=== PATIENT | female | born 1950 | race African-American/Black ===

== ENCOUNTER 2016-05-10 20:33 | Emergency (ER) ==
[2016-05-10] MEDS ORDERED: DUONEB (A & A) INH ONE (20:53)
[2016-05-10] MEDS ORDERED: TORADOL IM ONE (20:53)
--- NOTE | 2016-05-10 20:58 | PROVIDER DOCUMENTATION ---
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 PT STATES SICKNESS X 2 DAYS PT STATES SHE HAD A LOW GRADE FEVER AT HOME YESTERDAY. PT STATES A PRODUCTIVE COUGH WITH YELLOW PHLEGM. PT STATES BAD HEADACHE X 2 DAYS MORE PROMINENT ON LT SIDE Location of Pain/Injury: reports: back (RT LOWER BACK) Pain Radiation: reports: no radiation Quality of Pain: reports: aching Severity: reports: moderate Onset/Duration: reports: 1 hour ago Timing: reports: still present Context/Activities at Onset: reports: light activity Modifying Factors: improves with: nothing Associated Symptoms: reports: back/neck pain (RT LOWER) Similar Symptoms Previously?: No Recently seen or treated by another doctor?: No <Jostin Mendoza - Last Filed: 05/10/16 22:38> <John Ashton - Last Filed: 05/10/16 23:12> - General Chief Complaint: General Adult Stated Complaint: SOB/FALL @ 1999 Time Seen by Provider: 05/10/16 20:47 Allergies/Adverse Reactions: Patient Allergies Allergy/AdvReac Type Severity Reaction Status Date / Time Penicillins Allergy Severe SEIZURE Verified 05/10/16 21:48 Home Medications: Home Medication List Medication Instructions Recorded Confirmed Last Taken Type Clonazepam [Klonopin] 1 tab PO BID 12/01/11 05/10/16 05/10/16 History Oxycodone/APAP 10 mg/325 mg 1 each PO TID 03/31/14 05/10/16 05/10/16 History [Percocet-10] Valsartan/Hydrochlorothiazide 80 mg PO DAILY #0 09/01/14 05/10/16 05/10/16 Rx [Diovan Hct 80-12.5 mg Tablet] Citalopram Hydrobromide [Celexa] 10 mg PO DAILY 02/22/16 05/10/16 05/10/16 History Codeine/Promethazine [Phenergan 10 ml PO TID PRN PRN #120 ml 02/22/16 05/10/16 05/10/16 Rx with Codeine] Ipratropium 0.06% Nasal [place] 2 spray GEETA TID PRN #1 bottle 02/22/16 05/10/16 Rx [Atrovent 0.06% Nasal [place]] Azithromycin [Zithromax Z-Vineet] 250 mg PO DIRECTED #1 pkg 04/16/16 05/10/16 Rx Methylprednisolone [Medrol Dosepak] 4 mg PO DIRECTED #1 package 04/16/1611/1805/10/16 Rx Phenylephrine HCl/Cod/Prometh 2 tsp PO Q6H PRN PRN #120 syrup 04/16/16 05/10/16 05/10/16 Rx [Phenergan Vc-Codeine Syrup] Cephalexin [Keflex] 500 mg PO 4XDAY #30 capsule 05/10/16 Unknown Rx Methocarbamol [Robaxin-750] 750 mg PO TID #30 tablet 05/10/16 Unknown Rx Tramadol [Ultram] 50 mg PO TID #30 tablet 05/10/16 Unknown Rx Review of Systems - Adult - REVIEW OF SYSTEMS - ADULT Constitutional: denies: chills, fever Eyes: reports: no symptoms reported Ears, Nose, Mouth & Throat: reports: no symptoms reported Cardiovascular: denies: chest pain, palpitations, syncope Respiratory: reports: cough. denies: shortness of breath, wheezing Gastrointestinal: denies: abdominal pain, diarrhea, nausea, vomiting Genitourinary: reports: no symptoms reported Musculoskeletal: reports: back pain (RT LOWER). denies: neck pain Integumentary: reports: no symptoms reported Neurological: denies: dizziness/vertigo, headache/migraines, syncope Psychiatric: reports: no symptoms reported Endocrine: reports: no symptoms reported Hematologic/Lymphatic: reports: no symptoms reported Allergic/Immunologic: reports: no symptoms reported All Other Systems: Reviewed and Negative <Jostin Mendoza - Last Filed: 05/10/16 22:38> Past History - Adult - PAST MEDICAL HISTORY-ADULT Review of Records: reports: Nursing Assessment Review, Medications Reviewed Cardiovascular: reports: blood clots (DVT), HTN Respiratory: reports: asthma, COPD Gastrointestinal: reports: cancer (colon) Obstetrical/Gynecological: reports: other (breast cancer) Other Conditions: reports: other cancer (breast and colon cancer) - PRIOR SURGERIES/PROCEDURES Surgical/Procedure History: reports: hysterectomy, indwelling device (colostomy - reviesed), hernia repair, bowel surgery (partial colectomy), other (right mastectomy) - IMMUNIZATION STATUS Childhood Immunizations: See Nurse Assessment Flu Vaccine: See Nurse Assessment - FAMILY HISTORY Family History: reviewed, not pertinent - SOCIAL HISTORY Smoking: denies Substance Use: denies Alcohol Use Frequency: never Living Situation: family <Jostin Mendoza - Last Filed: 05/10/16 22:38> Physical Exam-General - CONSTITUTIONAL General Appearance: alert, moderate distress - EYES Eyes: PERRL/EOMI, pink conjunctivae - HEAD, EARS, NOSE, MOUTH & THROAT HENMT: moist mucous membranes - NECK Neck: non-tender, full range of motion, supple - RESPIRATORY Respiratory: chest non-tender, other (DIMINISHED AT BASES BILATERAL, MORE PROMINANT ON THE RIGHT SIDE) - CARDIOVASCULAR Cardiovascular: normal peripheral pulses, tachycardia - GASTROINTESTINAL (ABDOMEN) Abdominal Exam: normal bowel sounds, non tender, soft - LYMPHATIC Lymphatic: no adenopathy - MUSCULOSKELETAL Back Exam: other (RIGHT LOWER) Extremity: tenderness (PAINFUL RANGE OF MOTION) <Jostin Mendoza - Last Filed: 05/10/16 22:38> Progress - PLAN OF CARE/RESULTS Progress/Plan/Lab Results: Orders Category Date Time Status CHEST-2 VIEWS [RAD] Stat Exams 05/10/16 20:53 Taken LUMBAR SPINE W/O CONTRAST [CT] Stat Exams 05/10/16 20:52 Taken PELVIS [RAD] Stat Exams 05/10/16 20:52 Taken INFLUENZA SCREEN A/B Stat Lab 05/10/16 20:53 Uncollected Albuterol 2.5MG/Ipratrop 0.5MG [Duoneb (A & A)] Med 05/10/16 20:53 Discontinued 3 ml INH NOW ONE Ketorolac [Toradol] Med 05/10/16 20:53 Discontinued 60 mg IM NOW ONE Aerosol Treatments Routine Oth 05/10/16 20:53 Active Aerosol Treatments Stat Oth 05/10/16 20:53 Active Vital Signs - 24 hr 05/10/16 20:38 Temperature 98 F Pulse Rate 93 H Respiratory 20 Rate Blood Pressure 155/111 O2 Sat by Pulse 97 Oximetry - XRAY 1 XRAY: Bilateral XRAY Study: Pelvis XRAY Interpretation: NO FX 2 XRAY: Bilateral XRAY Study: Chest XRAY Interpretation: BRONCHITIS - CT/MRI 1 CT Study: Lumbar Spine CT Results: BONE [place] L4, SEVERE DDD AT L-4, L5 AND L5- S1. NO FX OR SUBLUXATION. 2 CT Study: Head CT Results: NO BLOOD. MARKED SINUSITIS <Jostin Mendoza - Last Filed: 05/10/16 22:38> Departure <Jostin Mendoza - Last Filed: 05/10/16 22:38> - Departure Time of Disposition Order: 23:11 Certified Medical Emergency: Emergent <John Ashton - Last Filed: 05/10/16 23:12> - Departure DIAGNOSIS: Sinusitis, Fall, Low back pain, HTN (hypertension) Disposition: HOME 01 Condition: Stable Additional Instructions: ED Follow Up Instructions: You have been treated by a care provider in the Emergency Department. These instructions are being provided to you so you can have an understanding of how to care for yourself upon discharge. Upon discharge from the Emergency Department, you are responsible for making arrangements for follow-up care by a physician of your choice. Take all prescribed medications as directed. Return to the Emergency Department immediately for any new or worsening symptoms. You may call the Physician Referral phone number at [phone] to obtain a list of Physicians who are taking new patients. Prescriptions: Cephalexin [Keflex] 500 mg PO 4XDAY #30 capsule Methocarbamol [Robaxin-750] 750 mg PO TID #30 tablet Tramadol [Ultram] 50 mg PO TID #30 tablet Attestation - Scribe Verification/Attestation Scribe:: Jostin Mendoza Acting as Scribe for:: John Ashton Scribe documention review:: This chart was documented by a scribe and accurately reflects the service the provider performed and the decisions made by the provider. <Jostin Mendoza - Last Filed: 05/10/16 22:38> Physician Attestation
--- NOTE | 2016-05-10 22:04 | Diag Imaging Result Document ---
PROCEDURE NAME: LUMBAR SPINE W/O CONTRAST - 05/10/2016 CT LUMBAR SPINE WITHOUT CONTRAST: FINDINGS: There is good alignment to the lumbar spine. No compressed vertebrae. No other fracture. There are vacuum disks at L4-5 and L5-S1. There is a bone island within the L4 vertebra. There is bone spurring at L4-L5 and L5-S1. IMPRESSION: 1. No acute bony injury. 2. Moderate to prominent degenerative changes in the lower lumbar spine. A preliminary report was given at 9:29 p.m.
[2016-05-10] MEDS ORDERED: PRINIVIL PO ONE (22:08)
[2016-05-10] MEDS ORDERED: CATAPRES PO ONE (22:08)
[2016-05-10] MEDS ORDERED: XYLOCAINE-MPF 1% INJ ONE (22:25)
[2016-05-10] MEDS ORDERED: ROCEPHIN IM ONE (22:25)
[2016-05-10] MEDS ORDERED: NORCO-5 PO ONE (22:25)
[2016-05-10 23:19] VITALS: BP 168/114
--- NOTE | 2016-05-11 00:11 | Diag Imaging Result Document ---
PROCEDURE NAME: HEAD W/O CONTRAST - 05/10/2016 STUDY: CT brain without. No parenchymal hemorrhage. No epidural or subdural hematoma. No subarachnoid hemorrhage. No hydrocephalus. No mass identified on this contrasted exam. There is near complete opacification of the frontal, ethmoid, maxillary, and sphenoid sinuses. IMPRESSION: 1. No hemorrhage. 2. Marked sinusitis. A preliminary report was given at 10:30
--- NOTE | 2016-05-11 07:38 | Diag Imaging Result Document ---
PROCEDURE NAME: PELVIS - 05/10/2016 PELVIS SINGLE-VIEW: FINDINGS: No fracture. No dislocation. There is an ostomy overlying the left side of the pelvis. No widening of the pubic symphysis. IMPRESSION: No acute bony injury.
--- NOTE | 2016-05-11 07:42 | Diag Imaging Result Document ---
PROCEDURE NAME: CHEST-2 VIEWS - 05/10/2016 FRONTAL AND LATERAL CHEST, TWO VIEWS: COMPARISON: 04/16/2016. FINDINGS: The lungs are well expanded. The heart is not enlarged. The vessels are not distended. There are no infiltrates. No pleural effusions. IMPRESSION: No pneumonia.
== END 2016-05-11 00:10 | disposition home or self-care (01) ==
LOC: ED 20:33
DX: M54.5 Low back pain (principal); J32.9 Chronic sinusitis, unspecified; I10 Essential (primary) hypertension; M47.9 Spondylosis, unspecified; R50.9 Fever, unspecified; R05 Cough; R09.3 Abnormal sputum; R51 Headache; Z79.899 Other long term (current) drug therapy; R06.02 Shortness of breath; R20.0 Anesthesia of skin; M62.81 Muscle weakness (generalized); J44.9 Chronic obstructive pulmonary disease, unspecified; Z86.718 Personal history of other venous thrombosis and embolism; Z85.038 Personal history of other malignant neoplasm of large intestine; Z85.3 Personal history of malignant neoplasm of breast; Z90.49 Acquired absence of other specified parts of digestive tract; Z90.11 Acquired absence of right breast and nipple; W01.0XXA Fall on same level from slipping, tripping and stumbling without subsequent striking against object, initial encounter
CPT/HCPCS: 70450; 71020; 72131; 72170; 87804; 94640; 96372; J0696; J1885

== ENCOUNTER 2018-11-06 15:22 | Inpatient (IN) ==
[2018-11-06] MEDS ORDERED: ASPIRIN PO ONE (15:30)
[2018-11-06] MEDS ORDERED: ASPIRIN PR ONE (15:30)
--- NOTE | 2018-11-06 16:05 | Diag Imaging Result Doc PS360 ---
EXAM: CHEST-2 VIEWS - 11/06/2018 HISTORY: SOB TECHNIQUE: Chest two views COMPARISON: 05/10/2016 FINDINGS: Heart size is normal. There is streaky infiltrate and/or atelectasis at the right middle lobe. There is possibly a small amount of streaky infiltrate or atelectasis at the right lower lobe. The left lung appears clear. There is no pleural effusion or pneumothorax identified. IMPRESSION: Streaky right lower lung infiltrate/atelectasis, most conspicuous at the middle lobe. Bronchopneumonia cannot be excluded. Electronically signed by Ej Guthrie 11/06/2018 4:02 PM
--- NOTE | 2018-11-06 16:12 | EKG Report ---
Test Performed on : 11/06/2018 3:35:35 PM Test Reason : SOB Blood Pressure : / mmHG Vent. Rate : 088 BPM Atrial Rate : 088 BPM P-R Int : 158 ms QRS Dur : 092 ms QT Int : 366 ms P-R-T Axes : 070 -11 060 degrees QTc Int : 442 ms Normal sinus rhythm. Normal ECG When compared with ECG of 15-NOV-2015 16:05, T wave inversion no longer evident in Inferior leads Unconfirmed Result
[2018-11-06 16:24] LABS: BASO# 0.02 X1000 (0.0-0.2); BASO% 0.3 % (0.0-0.8); EOS# 0.13 X1000 (0.0-0.7); EOS% 1.7 % (0.0-10.0); HEMATOCRIT 36.2 % (37.0-47.0); HEMOGLOBIN 12.2 g/dL (12.0-16.0); IMM GRAN# 0.02 X1000 (0.0-0.04); IMM GRAN% 0.3 % (0.0-0.5); LYMPH# 3.03 X1000 (1.2-3.4); LYMPH% 40.1 % (20.5-51.1); MCH 32.3 PG (27-31); MCHC 33.7 g/dL (33-37); MCV 95.8 FL (81-99); MONO# 0.87 X1000 (0.11-0.59); MONO% 11.5 % (1.7-9.3); MPV 10.9 FL (7.4-10.4); NEUT# 3.49 X1000 (1.4-6.5); NEUT% 46.1 % (42.2-75.2); PLT 214 X1000 (130-400); RBC 3.78 XMIL (4.2-5.4); RDW 12.6 % (11.5-14.5); WBC 7.56 X1000 (4.8-10.8)
[2018-11-06] MEDS ORDERED: DUONEB (A & A) INH ONE (16:24)
[2018-11-06 16:30] LABS: INR 0.92; PROTIME 12.8 Seconds (11.0-16.0); PTT 27.7 Seconds (22.3-41.8)
[2018-11-06 16:35] LABS: CALCIUM 8.7 mg/dL (8.8-10.2); CREATININE 1.1 mg/dL (0.5-0.9); POTASSIUM 3.8 mmol/L (3.5-5.1); TOTAL BILIRUBIN 0.2 mg/dL (0.20-1.00); TOTAL PROTEIN 7.4 g/dL (6.3-8.3)
[2018-11-06] MEDS ORDERED: LOVENOX 1 MG/KG SUBQ ONE (17:47)
[2018-11-06] MEDS ORDERED: LOVENOX ONE (17:53)
[2018-11-06] MEDS ORDERED: LEVAQUIN 500 MG/D5W 500 MG/100 ML IVPB IV SCH (18:00)
--- NOTE | 2018-11-06 18:06 | PROVIDER DOCUMENTATION ---
This chart was entered by Viry Hilario Scribe, acting as scribe for Brendan Hathaway MD. HPI-Respiratory General - General Chief Complaint: Shortness of Breath Stated Complaint: SOB Time Seen by Provider: 11/06/18 15:31 Source: patient Allergies/Adverse Reactions: Patient Allergies Allergy/AdvReac Type Severity Reaction Status Date / Time Penicillins Allergy Severe SEIZURE Verified 03/06/18 18:26 Home Medications: Home Medication List Medication Instructions Recorded Confirmed Last Taken Type Citalopram Hydrobromide [Celexa] 20 mg PO DAILY 02/22/16 03/06/18 03/16/17 12:00 History Gabapentin [Neurontin] 600 mg PO TID 03/06/18 03/06/18 Unknown History Oxycodone/APAP 5 mg/325 mg 1 each PO Q4H PRN PRN #12 tablet 03/07/18 Unknown Rx [Percocet-5] - History of Present Illness-Resp Nature of Presenting Problem: 68 yobf presents to the ed with c/o sob, wheezing, rt sided chest wall pain and diaphoresis with sx being intermittent and onset last night. pt sts sx worsed today while at the grocery store so she came to ed to be checked out . Pt admits that she has hx of DVTs and has been coughing up blood since last night. Quality of Pain: reports: fullness Severity in ED: reports: moderate Onset/Duration: reports: last night Timing: reports: still present, intermittent, getting worse Exposure: reports: unknown cause Cough Quality/Degree: reports: no cough Episode Frequency: occasional episodes Current Respiratory Medication Therapy: Initiated see nurses note Modifying Factors: improves with: albuterol inhaler (was better with x1 tx this am but has returned worse). worse with: exertion Associated Symptoms: reports: chest pain/soreness (rt sided chest wall), hyperventilating, shortness of breath, sweaty, wheezing. denies: cough, dizziness, heart racing Similar Symptoms Previously?: Yes (hx of copd and asthma) Recently seen or treated by another doctor?: No Review of Systems - Adult - REVIEW OF SYSTEMS - ADULT Constitutional: denies: chills, fever Eyes: reports: no symptoms reported Ears, Nose, Mouth & Throat: reports: no symptoms reported Cardiovascular: reports: see HPI, chest pain (rt sided chest wall pain). denies: palpitations, syncope Respiratory: reports: see HPI, dyspnea on exertion, shortness of breath, wheezing. denies: cough Gastrointestinal: reports: see HPI, abdominal pain (LLQ). denies: diarrhea, n ausea, vomiting Genitourinary: reports: no symptoms reported Musculoskeletal: denies: back pain, neck pain Integumentary: reports: no symptoms reported Neurological: denies: dizziness/vertigo, headache/migraines Psychiatric: reports: no symptoms reported Endocrine: reports: see HPI, excessive sweating Hematologic/Lymphatic: reports: no symptoms reported Allergic/Immunologic: reports: see HPI, asthma All Other Systems: Reviewed and Negative Past History - Adult - PAST MEDICAL HISTORY-ADULT Review of Records: reports: Old Records Reviewed, Nursing Assessment Review, Medications Reviewed, Social history reviewed & non-contributory. Major Childhood Illnesses: reports: denies history Cardiovascular: reports: blood clots (DVT), HTN Respiratory: reports: asthma, COPD Gastrointestinal: reports: cancer (colon/rectal 2008) Obstetrical/Gynecological: reports: other (breast cancer) Genitourinary: reports: denies history Musculoskeletal: reports: cancer (breast 1991), chronic pain (pt reports rectal pain for 9 years) Hand Dominance: Right Handed Neurological: reports: denies history Psychiatric: reports: denies history Endocrine/Immune: reports: denies history - PRIOR SURGERIES/PROCEDURES Surgical/Procedure History: reports: colonoscopy, hysterectomy, indwelling device (colostomy- reviesed), hernia repair, bowel surgery (partial colectomy), breast - IMMUNIZATION STATUS Childhood Immunizations: See Nurse Assessment Flu Vaccine: See Nurse Assessment - FAMILY HISTORY Family History: reviewed, not pertinent - SOCIAL HISTORY Smoking: denies Substance Use: denies Alcohol Use Frequency: never Living Situation: family Physical Exam-General - PHYSICAL EXAM-ADULT Initial Vital Signs Reviewed: Yes - CONSTITUTIONAL General Appearance: appears well, alert, mild distress, obese - EYES Eyes: PERRL/EOMI, pink conjunctivae - HEAD, EARS, NOSE, MOUTH & THROAT HENMT: moist mucous membranes - NECK Neck: non-tender, full range of motion, normal inspection - RESPIRATORY Respiratory: chest non-tender, lungs clear, normal breath sounds, respiratory distress (mild), increased rate (24). negative: crackles, rales, wheezing - CARDIOVASCULAR Cardiovascular: normal peripheral pulses, regular rate, rhythm - CHEST (BREASTS) Chest/Breast: deferred - GASTROINTESTINAL (ABDOMEN) Abdominal Exam: soft, tenderness (LLQ), other (LLQ colostomy bag and mild tenderness noted under colostomy bag) - LYMPHATIC Lymphatic: no adenopathy - MUSCULOSKELETAL Back Exam: normal inspection, no CVA tenderness, no vertebral tenderness Extremity: normal range of motion, non-tender, normal gait, normal inspection - SKIN Integumentary: normal color, normal turgor, diaphoresis - NEUROLOGIC Neurologic: grossly normal - PSYCHIATRIC Psych/Mental Status: normal mood/affect, normal thought content, normal thought process, oriented x 3 - HEART Score HEART Score: History: Slightly Suspicious HEART Score: ECG: Non-Specific Repolarization Disturbance/LBBB/PM HEART Score: Age: > or = 65 Years HEART Score: Risk Factors for Atherosclerotic Disease: 1 or 2 Risk Factors HEART Score: Troponin: < or = Normal Limit Total HEART Score:: 4 Progress - PLAN OF CARE/RESULTS Progress/Plan/Lab Results: Vital Signs - 8 hr 11/06/18 15:26 11/06/18 16:42 Temperature 98.6 F Pulse Rate 97 H 67 Respiratory Rate 24 18 Blood Pressure 124/64 O2 Sat by Pulse Oximetry 97 97 Laboratory Results - last 24 hr 11/06/18 11/06/18 11/06/18 15:40 15:40 15:40 WBC 7.56 RBC 3.78 L Hgb 12.2 Hct 36.2 L MCV 95.8 MCH 32.3 H MCHC 33.7 RDW Std Deviation 12.6 Plt Count 214 MPV 10.9 H Immature Gran % (Auto) 0.3 Neut % (Auto) 46.1 Lymph % (Auto) 40.1 [place] % (Auto) 11.5 H Eos % (Auto) 1.7 Baso % (Auto) 0.3 Immature Gran # (Auto) 0.02 Neut # (Auto) 3.49 Lymph # (Auto) 3.03 [place] # (Auto) 0.87 H Eos # (Auto) 0.13 Baso # (Auto) 0.02 PT INR PTT (Actin FS) D-Dimer, Quantitative Sodium 135 L Potassium 3.8 Chloride 104 Carbon Dioxide 16 L Anion Gap 15 BUN 16 Creatinine 1.1 H Estimated GFR/1.73 m2 49 BUN/Creatinine Ratio 15 Glucose 91 Calculated Osmolality 271 Calcium 8.7 L Total Bilirubin 0.20 AST 17 ALT 12 Alkaline Phosphatase 103 Creatine Kinase 96 Troponin T Dae-D-Hlrowqbnotu Pept 154 Total Protein 7.4 Albumin 4.0 Globulin 3.0 Albumin/Globulin Ratio 1.0 11/06/18 11/06/18 11/06/18 15:40 15:40 15:40 WBC RBC Hgb Hct MCV MCH MCHC RDW Std Deviation Plt Count MPV Immature Gran % (Auto) Neut % (Auto) Lymph % (Auto) [place] % (Auto) Eos % (Auto) Baso % (Auto) Immature Gran # (Auto) Neut # (Auto) Lymph # (Auto) [place] # (Auto) Eos # (Auto) Baso # (Auto) PT 12.8 INR 0.92 PTT (Actin FS) 27.7 D-Dimer, Quantitative 0.70 H Sodium Potassium Chloride Carbon Dioxide Anion Gap BUN Creatinine Estimated GFR/1.73 m2 BUN/Creatinine Ratio Glucose Calculated Osmolality Calcium Total Bilirubin AST ALT Alkaline Phosphatase Creatine Kinase Troponin T < 0.010 Fai-[id number]-[id number] Pept Total Protein Albumin Globulin Albumin/Globulin Ratio Orders Category Date Time Status Cardiac Monitoring DIRECTED Care 11/06/18 15:30 Active Oxygen Therapy- ED Nursing DIRECTED Care 11/06/18 15:30 Active Saline Loc NOW Care 11/06/18 15:30 Active CHEST-2 VIEWS [RAD] Stat Exams 11/06/18 15:30 Completed BLOOD CULTURE [BLDCUL] Stat Lab 11/06/18 17:47 Ordered CBC WITH ELECTRONIC DIFF [HEME] Stat Lab 11/06/18 15:40 Completed CK PROFILE [SP CHEM] Stat Lab 11/06/18 15:40 Completed COMPREHENSIVE METABOLIC PANEL [CHEM] Stat Lab 11/06/18 15:40 Completed D-DIMER [COAG] Stat Lab 11/06/18 15:40 Completed PRO B-NATRIURETIC PEPTIDE Stat Lab 11/06/18 15:40 Completed PROTIME WITH INR [COAG] Stat Lab 11/06/18 15:40 Completed PTT [COAG] Stat Lab 11/06/18 15:40 Completed TROPONIN T Stat Lab 11/06/18 15:40 Completed Albuterol 2.5MG/Ipratrop 0.5MG [Duoneb (A & A)] Med 11/06/18 16:24 Discontinued 3 ml INH NOW ONE Aspirin Med 11/06/18 15:30 Discontinued 300 mg DE NOW ONE Aspirin Med 11/06/18 15:30 Discontinued 325 mg PO NOW ONE Enoxaparin 1 mg/kg [Lovenox 1 mg/kg] Med 11/06/18 17:47 Discontinued 1 each SUBQ NOW ONE Enoxaparin [Lovenox] Med 11/06/18 17:53 Discontinued 100 mg .ROUTE .STK-MED ONE Levofloxacin 500 mg/D5w [Levaquin 500 mg/D5w] Med 11/06/18 18:00 Ordered 500 mg in 100 ml IV Q24H Aerosol Treatments Routine Oth 11/06/18 16:24 Completed Aerosol Treatments Stat Oth 11/06/18 16:24 Completed CP/SOB/Palp >45 yrs of Age Stat Oth 11/06/18 15:30 Ordered EKG [EKG] Stat Ther 11/06/18 15:30 Draft Pt discussed with Dr Santa about elevated d-dimer and hx of blood clots. Plan is to admit and treat for pneumonia covering for potential PTE with lovenox and get VQ scan in the am. Result Diagrams: 11/06/18 15:40 11/06/18 15:40 - REASSESSMENT Reassessment #1 Time Reassessed: 16:11 Status: improving - EKG 1 Time of EKG reading by physician:: 15:35 EKG Read and Signed by:: Brendan Hathaway EKG Interpretation (*Must complete 3 of following elements*): Normal Rate: 88 Rhythm: nsr [place]: normal QRS: normal [place] Interval: normal ST Wave: normal - XRAY 1 XRAY: Bilateral XRAY Study: Chest Impression: See EMR Report (EXAM: CHEST-2 VIEWS - 11/06/2018 HISTORY: SOB TECHNIQUE: Chest two views COMPARISON: 05/10/2016 FINDINGS: Heart size is normal. There is streaky infiltrate and/or atelectasis at the right middle lobe. There is possibly a small amount of streaky infiltrate or atelectasis at the right lower lobe. The left lung appears clear. There is no pleural effusion or pneumothorax identified. IMPRESSION: Streaky right lower lung infiltrate/atelectasis, most conspicuous at the middle lobe. Bronchopneumonia cannot be excluded. Electronically signed by Ej Guthrie 11/06/2018 4:02 PM 11/06/18 1602 Interpreting Physician: Ej Guthrie MD Dictated Date/Time: 11/06/18 1600 cc: Brendan Hathaway MD; Tanner Lopez MD) - CONSULTS/PCP/HOSPITALIST Notification #1 *Consult/PCP/Hospitalist*: hospitalist dr santa Time Discussed: 17:57 Consult Disposition: Admit Departure - Departure Date of Disposition Decision: 11/06/18 Time of Disposition Decision: 18:02 DIAGNOSIS: Pneumonia, Hemoptysis, SOB (shortness of breath), Elevated d-dimer, Renal insufficiency Disposition: ADMITTED INPATIENT 09 Certified Medical Emergency: Emergent Condition: Fair Referrals and Follow-Ups: Tanner Lopez MD [Primary Care Provider] - - Critical Care Note This patient required my direct & personal management of CC.: No Attestation - Physician/ EVE Attestation Patient care was provided by Advanced Practice Provider:: No The physician spent face to face time with patient:: Yes Advanced Practice Provider documentation review:: Supervising physician onsite and consulted in the evaluation and care of this patient. The physician did have a face to face encounter with the patient. This chart was documented by the indicated scribe, (Viry Hilario Scribe) and accurately reflects the services I performed and decisions made by me, Brendan Hathaway MD, as attested by the provider's signature.
[2018-11-06] MEDS ORDERED: TYLENOL PO PRN (18:26)
[2018-11-06] MEDS ORDERED: ZOFRAN IV PRN (18:26)
[2018-11-06] MEDS ORDERED: DOXYCYCLINE 100 MG in NS 250 ML IV SCH (18:30)
[2018-11-06] MEDS: DUONEB (A & A) INH SCH ×2 (19:40→22:47)
[2018-11-06] MEDS ORDERED: LEVAQUIN 250 MG/D5W 250 MG/50 ML IVPB IV ONE (20:00)
[2018-11-06] MEDS: NS 1,000 ML IV SCH (20:04)
[2018-11-06 21:36] LABS: URINE SOURCE CLEAN CATCH
[2018-11-06 21:41] LABS: BILIRUBIN URINE NEGATIVE (NEGATIVE); BLOOD URINE NEGATIVE (NEGATIVE); CLARITY CLEAR (CLEAR); COLOR YELLOW; GLUCOSE URINE NEGATIVE (NEGATIVE); KETONE URINE NEGATIVE (NEGATIVE); LEUKOCYTES URINE TRACE (NEGATIVE); NITRITE URINE NEGATIVE (NEGATIVE); PROTEIN URINE NEGATIVE (NEGATIVE); SP GRAVITY URINE 1.015; UROBILINOGEN URINE NORMAL
[2018-11-06 21:52] LABS: URINE BACTERIA 1+ /HFP; URINE EPITHELIAL CELLS >10 /HPF (<10); URINE RBC <10 /HPF (<10)
--- NOTE | 2018-11-07 04:38 | HISTORY AND PHYSICAL ---
CHIEF COMPLAINT: Shortness of breath. HISTORY OF PRESENT ILLNESS: Patient is a very pleasant 68-year-old female who presented to the hospital with complaints of shortness of breath, coughing, congestion, wheezing. Notes that yesterday she started coughing, and actually coughed up blood. States that only happened 1 time. She actually thought it was more from her sinuses than her lungs. Today, she was at the grocery store, she felt even more weak and fatigued; therefore, came to the ER. ALLERGIES: Penicillin. MEDICATIONS: Celexa 20. REVIEW OF SYSTEMS: Positive cough, congestion, shortness of breath. She has had a productive cough, low-grade fevers, increased work of breathing, dyspnea on exertion. She has been taking albuterol at times. Notes that she has been wheezing. She has had some right-sided chest wall pain, some left upper quadrant abdominal pain. Denies any fevers, chills currently. States that she felt the fever was gone. She has had excessive sweating. Denies chest pains, otherwise. Denies headaches, blurred vision, change in vision. Denies any focalized numbness, tingling, or weakness in her extremities. PAST MEDICAL HISTORY: History of DVTs, hypertension, COPD. She has had colon and rectal cancer in 2004. She has had breast cancer in 1991, has had chronic pain since her rectal cancer. SURGICAL HISTORY: She has had a hysterectomy, indwelling colostomy, hernia repair, bowel surgery for partial colectomy, she has had breast surgery due to cancer. FAMILY HISTORY: Noncontributory. SOCIAL HISTORY: The patient does not smoke or drink. Denies illicit substances. PHYSICAL EXAMINATION: VITAL SIGNS: Reviewed. Temperature 98 degrees, pulse 97, respiratory rate 18, BP 124/64, saturation 97% on room air. GENERAL: Patient is awake, alert. She is very pleasant. She is in no respiratory distress. HEENT: Normocephalic. NECK: Supple. CARDIOVASCULAR: Regular rate. CHEST: Clear, nonlabored. No wheezing currently. Good air movement. ABDOMEN: Soft, nondistended. EXTREMITIES: Moves all extremities. ASSESSMENT: 1. Bronchopneumonia. 2. Hemoptysis due to pneumonia. 3. Shortness of breath. 4. Elevated D-dimer. 5. Metabolic acidosis. 6. Mild renal insufficiency. PLAN: We will admit patient to the hospital. We will evaluate her D-dimer, place her on antibiotics, oxygen, breathing treatments, and will follow. cc: Danny Santa MD
[2018-11-07 06:43] LABS: HEMATOCRIT 33.1 % (37.0-47.0); HEMOGLOBIN 10.9 g/dL (12.0-16.0); MCH 31.6 PG (27-31); MCHC 32.9 g/dL (33-37); MCV 95.9 FL (81-99); MPV 11.2 FL (7.4-10.4); RBC 3.45 XMIL (4.2-5.4); RDW 12.6 % (11.5-14.5); WBC 7.12 X1000 (4.8-10.8)
[2018-11-07 06:49] LABS: AGAP 13; ALBUMIN 3.5 g/dL (3.5-5.0); ALKALINE PHOSPHATASE 81 U/L (32-104); BUN 13 mg/dL (8-22); CALCIUM 8.4 mg/dL (8.8-10.2); CHLORIDE 108 mmol/L (98-107); COSMO 275; CREATININE 0.9 mg/dL (0.5-0.9); ESTIMATED GFR > 60; GLUCOSE 81 mg/dL (70-104); GOT 13 U/L (10-30); GPT 10 U/L (10-36); POTASSIUM 3.7 mmol/L (3.5-5.1); SODIUM 138 mmol/L (136-145); TCO2 18 mmol/L (25-35); TOTAL PROTEIN 6.8 g/dL (6.3-8.3)
[2018-11-07] MEDS: DUONEB (A & A) INH SCH ×5 (08:09→23:24)
[2018-11-07] MEDS: DOXYCYCLINE PO SCH ×2 (09:43→20:21)
[2018-11-07] MEDS ORDERED: NORCO-7.5 PO ONE (11:29)
[2018-11-07] MEDS: CELEXA PO SCH (11:44)
[2018-11-07] MEDS ORDERED: NEURONTIN PO SCH (13:00)
[2018-11-07] MEDS: NEURONTIN PO SCH ×2 (15:24→20:21)
[2018-11-07] MEDS: NS 1,000 ML IV SCH (15:24)
[2018-11-07] MEDS: LEVAQUIN 750 MG/D5W 750 MG/150 ML IVPB IV SCH (17:56)
--- NOTE | 2018-11-07 19:31 | PROGRESS NOTE ---
DATE: 11/07/2018 SUBJECTIVE: The patient notes she still feels quite terrible. She is still having lots of cough, congestion and shortness of breath. Denies any fevers. OBJECTIVE: Temperature 97.8 degrees, pulse 81, respiratory rate 18, BP 115/71.General: The patient is awake. She is very pleasant. She is in mild respiratory distress, is still somewhat ill appearing. HEENT: Normocephalic. Neck supple. Cardiovascular: Regular rate. Chest clear. No current crackles, although decreased breath sounds bilaterally. Positive rhonchi throughout. No wheezing. Abdomen soft, nondistended. Extremities: Moves all extremities. Neurologic: No focal changes. ASSESSMENT: 1. Bronchopneumonia. 2. Hemoptysis secondary to pneumonia. 3. Elevated D-dimer. 4. Metabolic acidosis. PLAN: We will continue the patient in the hospital. Continue antibiotics, treatment, oxygen and will follow. cc: Danny Santa MD
[2018-11-07] MEDS ORDERED: VANCOMYCIN IV PER PHARMACY MISC SCH (21:00)
[2018-11-07] MEDS: VANCOMYCIN 1 GM/NS 1 GM/250 ML IVPB IV SCH ×2 (22:04→23:54)
[2018-11-08] MEDS: NEURONTIN PO SCH ×3 (08:10→22:33)
[2018-11-08] MEDS: CELEXA PO SCH (08:10)
[2018-11-08] MEDS: DOXYCYCLINE PO SCH ×2 (08:10→22:34)
[2018-11-08] MEDS: DUONEB (A & A) INH SCH ×6 (08:24→23:00)
--- NOTE | 2018-11-08 10:22 | PROGRESS NOTE ---
DATE: 11/08/2018 SUBJECTIVE: Patient feels good today, although she does feel weakness. OBJECTIVE: Vital Signs: Temperature 97.8 degrees, pulse 70 per minute, respiratory rate 18 per minute, blood pressure 135/78, pulse oximetry 98% on room air. General: Patient is alert and oriented x3. She does not appear to be in any acute distress. Cardiovascular System: First and 2nd heart sounds are audible without any murmurs or gallops. Respiratory System: Bilateral lung air entry is moderately decreased with few occasional expiratory rhonchi present on auscultation. Gastrointestinal System: Abdomen is soft and nondistended. Normal bowel sounds are present. Musculoskeletal System: No deformities are present. DIAGNOSTIC DATA: No new labs or x-rays have been done. IMPRESSION: 1. Right middle lobe pneumonia. 2. Urinary tract infection. PLAN: We are going to continue with broad-spectrum antibiotics along with bronchodilators. We will also continue with IV fluids and supportive care. I am going to obtain a CBC along with basic metabolic panel and chest x-ray tomorrow morning. cc: Al Reyes MD
[2018-11-08] MEDS: NS 1,000 ML IV SCH (12:33)
[2018-11-08] MEDS: LEVAQUIN 750 MG/D5W 750 MG/150 ML IVPB IV SCH (16:03)
[2018-11-08] MEDS ORDERED: VANCOMYCIN 1,700 MG in NS 250 ML IV SCH (22:00)
[2018-11-09 05:19] VITALS: BP 114/70
[2018-11-09 07:18] LABS: BASO# 0.03 X1000 (0.0-0.2); BASO% 0.5 % (0.0-0.8); EOS# 0.12 X1000 (0.0-0.7); EOS% 1.9 % (0.0-10.0); HEMATOCRIT 31.3 % (37.0-47.0); IMM GRAN# 0.02 X1000 (0.0-0.04); IMM GRAN% 0.3 % (0.0-0.5); LYMPH# 2.14 X1000 (1.2-3.4); LYMPH% 33.4 % (20.5-51.1); MCH 31.3 PG (27-31); MCHC 31.9 g/dL (33-37); MCV 98.1 FL (81-99); MONO# 0.89 X1000 (0.11-0.59); MONO% 13.9 % (1.7-9.3); MPV 11.1 FL (7.4-10.4); PLT 197 X1000 (130-400); RBC 3.19 XMIL (4.2-5.4); RDW 13.2 % (11.5-14.5)
--- NOTE | 2018-11-09 07:29 | Diag Imaging Result Doc PS360 ---
CHEST-PORTABLE - 11/09/2018 INDICATION: Pneumonia COMPARISON: 11/06/2018 FINDINGS: The lungs are normally expanded and clear. Heart size and mediastinal contours are normal. No pneumothorax or pleural effusion. IMPRESSION: Negative exam. Electronically signed by Jamison Boone 11/09/2018 7:27 AM
[2018-11-09 07:36] LABS: AGAP 11; BUN 15 mg/dL (8-22); CHLORIDE 114 mmol/L (98-107); COSMO 283; CREATININE 0.9 mg/dL (0.5-0.9); ESTIMATED GFR > 60; GLUCOSE 77 mg/dL (70-104); POTASSIUM 3.8 mmol/L (3.5-5.1); SODIUM 142 mmol/L (136-145); TCO2 17 mmol/L (25-35)
[2018-11-09] MEDS: DUONEB (A & A) INH SCH (08:29)
--- NOTE | 2018-11-09 16:16 | DISCHARGE SUMMARY ---
ADMISSION DATE: 11/06/2018 DISCHARGE DATE: 11/09/2018 DISCHARGE DIAGNOSES: 1. Right middle lobe pneumonia. 2. Urinary tract infection. HOSPITAL COURSE: Ms. Kim is a very pleasant 68-year-old female who came into the hospital with shortness of breath along with coughing and chest congestion. She was also noted to have some mild hemoptysis secondary to pneumonia. She was treated with IV vancomycin along with levofloxacin. She was also noted to have urinary tract infection, and that has also now improved. Her overall condition has improved, and therefore she is going to be discharged home today. She will be discharged home on levofloxacin 750 mg orally once daily for 7 days. DISCHARGE MEDICATIONS: 1. Levofloxacin 750 mg orally once daily for 7 days. 2. Citalopram 20 mg orally once daily. 3. Gabapentin 600 mg orally 3 times a day. FOLLOWUP: She will follow with Dr. Tanner Lopez, who is her PCP, in approximately 1 week. CONDITION: Stable. DISPOSITION: Home. cc: Al Reyes MD
== END 2018-11-09 10:36 | disposition home or self-care (01) | DRG 194 ==
LOC: P.ED 15:22 → SUATTDRO 18:40 → P.MEDSURG 18:40
PROVIDERS: ATTEND Internal Medicine